=== PATIENT | female | born 1995 | race Caucasian/White ===

== ENCOUNTER 2024-11-10 09:08 | Emergency (ER) | payer OTHER, SELFPAY ==
[2024-11-10 09:12] VITALS: BP 148/89
[2024-11-10 09:40] VITALS: BMI 34.2
[2024-11-10 10:29] LABS: Hematocrit 35.7 % (37.0-47.0); Hemoglobin 11.3 g/dL (12.0-16.0); Mean Corp Hgb Conc. 31.7 g/dL (33.0-37.0); Mean Corpuscular Volume 80.6 fL (81.0-99.0); Nucleated Red Blood Cells % 0 %; Platelet Count 337 10^3/uL (130-400); Red Cell Dist. Width 15.2 % (11.5-14.5)
[2024-11-10 10:35] LABS: ALT (SGPT) 20 U/L (0-35); AST (SGOT) 19 U/L (14-36); Albumin 4.8 g/dl (3.5-5.0); Alkaline Phosphatase 62 U/L (38-126); Blood Urea Nitrogen 9 mg/dl (7-17); Calcium 9.4 mg/dl (8.4-10.2); Carbon Dioxide 19 mmol/L (22-30); Chloride 113 mmol/L (98-107); Estimated Creatinine Clearance > 125 ml/min; Glucose 99 mg/dl (70-99); Potassium 5.5 mmol/L (3.5-5.1); Sodium 140 mmol/L (135-145); Total Protein 7.7 g/dl (6.3-8.2); eGFR > 60.00
[2024-11-10 10:48] LABS: Beta HCG Quantitative 121.22 mIU/ml
[2024-11-10] MEDS: METHOTREXATE 2 MG IM ×2 (14:50→14:51)
[2024-11-10 15:16] VITALS: BP 136/82
--- NOTE | 2024-11-10 18:35 | HP.FOC2 ---
Focused History & Physical
Chief Complaint
HPI:
Chief Complaint: Abnormal HCG values
HPI / Indication for Planned Procedure: 29yo with LMP 09/11/24 presents to the ER at our request due to inappropriately rising HCGs over the last 2 weeks. She has intermittent spotting, though none today. She has no abdominal pain. She denies
n/v. Her HCGs are as follows:
10/19: 57,
10/21: 44
10/29: 51
11/06: 99
11/10: 121 (this one done at , the rest at [facility])
Relevant Past Medical History: Negative
Relevant Social History: Negative
Relevant Family History: Positive for (Breast CA- PA, MGM. HTN- Father, Mother)
Relevant Past Surgical History: Positive for (Eye Surgery)
Review of Systems
Review of Pertinent Systems: All Systems Negative Except for the Following Positives (Per HPI)
Medication
See Medication form for detailed medications: Yes
Medication List (including Herbals & OTC):
prenat.vits,rommel,kzy-wyhe-eflwc 1 tab PO DAILY Supplement
Medications Reviewed: Yes
Allergies and Reactions
Patient has Allergies: No
Noted Allergies and Reactions:
Allergy/AdvReac Type Severity Reaction Status Date / Time
No Known Allergies Allergy Verified 11/10/24 09:12
Pertinent Physical Exam
All Other Systems: Negative
Abdomen: Normal
Diagnosis / Assessment
29yo with of unknown location
Plan / Procedure
I explained to the patient that her HCGs have been changing very abnormally so I can tell her with certainty that this is NOT a normal and there is a possibility that this is an ectopic . Thus, I explained we should manage this
with methotrexate. I explained the importance of close HCG follow up after this to ensure resolution. Explained possibly needing to repeat her dose of MTX if HCG does not drop appropriately. I also explained if this is an ectopic, then the
risk for rupture of the tube remains until the HCG is negative thus she is to call if she develops any severe pain. Advised to stop her PNV now. Also explained once resolves, she should wait until she has at least 2 normal periods before
trying to conceive again. She expressed understanding and can be d/c home after MTX administration.
Vital Signs / Labs
-
Vital Signs and Labs:
Temp Pulse Resp BP Pulse Ox
97.9 F 82 18 136/82 99
11/10/24 15:16 11/10/24 15:16 11/10/24 15:16 11/10/24 15:16 11/10/24 15:16
11/10/24 09:54
11/10/24 09:54
11/10/24
09:54
Hgb 11.3 L
Hct 35.7 L
MCV 80.6 L
MCH 25.5 L
MCHC 31.7 L
RDW 15.2 H
Potassium 5.5 H
Chloride 113 H
Carbon Dioxide 19 L
Creatinine 0.5 L
HCG Quant: 121
Imaging Data
-
PELVIC US:
Uterus: Uterus measures 10.1 x 5.1 x 5.6 cm.
Endometrium: Unremarkable, 1 cm. No intrauterine gestational sac.
Right ovary: 3 x 1.4 x 2.7 cm, based on transabdominal approach secondary to positioning superiorly in the pelvis. Unremarkable sonographic appearance.
Left ovary: 2.8 x 4 x 3.4 cm, with simple cyst measuring 2.7 x 2.5 x 2.4 cm.
Free pelvic fluid: Simple appearing free pelvic fluid with estimated volume of 13 mL.
== END 2024-11-10 15:16 | disposition home or self-care (01) ==
LOC: EMR 09:08
PROVIDERS: EMERGENCY PHYSICIAN Obstetrics & Gynecology; FAMILY PHYSICIAN Physician Assistant Medical
DX: O36.80X0 Pregnancy with inconclusive fetal viability, not applicable or unspecified (principal); O02.81 Inappropriate change in quantitative human chorionic gonadotropin (hCG) in early pregnancy; Z3A.00 Weeks of gestation of pregnancy not specified
CPT/HCPCS: 99284; 96372; 76830; 76856; 80053; 84702; 85025; 86850; 86900; 86901; J9260

== ENCOUNTER → 2024-11-13 14:02 | Outpatient (REF) | payer OTHER, SELFPAY ==
[2024-11-13 15:20] LABS: Beta HCG Quantitative 125.29 mIU/ml
== END ==
LOC: REG 14:02
PROVIDERS: ATTENDING PHYSICIAN Obstetrics & Gynecology; FAMILY PHYSICIAN Physician Assistant Medical
DX: O02.81 Inappropriate change in quantitative human chorionic gonadotropin (hCG) in early pregnancy (principal)
CPT/HCPCS: 36415; 84702

== ENCOUNTER → 2024-11-16 16:33 | Outpatient (REF) | payer OTHER, SELFPAY ==
[2024-11-16 17:40] LABS: Beta HCG Quantitative 80.80 mIU/ml
== END ==
LOC: REG 16:33
PROVIDERS: ATTENDING PHYSICIAN Obstetrics & Gynecology; FAMILY PHYSICIAN Physician Assistant Medical
DX: O02.81 Inappropriate change in quantitative human chorionic gonadotropin (hCG) in early pregnancy (principal)
CPT/HCPCS: 36415; 84702

== ENCOUNTER → 2024-11-24 16:39 | Outpatient (REF) | payer OTHER, SELFPAY ==
[2024-11-24 17:39] LABS: Beta HCG Quantitative 9.60 mIU/ml
== END ==
LOC: REG 16:39
PROVIDERS: ATTENDING PHYSICIAN Obstetrics & Gynecology; FAMILY PHYSICIAN Physician Assistant Medical
DX: O02.81 Inappropriate change in quantitative human chorionic gonadotropin (hCG) in early pregnancy (principal)
CPT/HCPCS: 36415; 84702

== ENCOUNTER → 2024-11-30 16:34 | Outpatient (REF) | payer OTHER, SELFPAY ==
[2024-11-30 18:06] LABS: Beta HCG Quantitative < 2.39 mIU/ml
== END ==
LOC: REG 16:34
PROVIDERS: ATTENDING PHYSICIAN Obstetrics & Gynecology; FAMILY PHYSICIAN Physician Assistant Medical
DX: O02.81 Inappropriate change in quantitative human chorionic gonadotropin (hCG) in early pregnancy (principal)
CPT/HCPCS: 36415; 84702